=== PATIENT | female | born 1990 | race Caucasian/White ===

== ENCOUNTER 2017-01-29 12:45 | Inpatient (IN) | payer OTHER ==
[~2017-01-29] VITALS: Ht 160 cm; Wt 92.1 kg
[2017-01-29] MEDS ORDERED: IBUPROFEN 600 MG TABLET. PO PRN (13:45)
[2017-01-29] MEDS ORDERED: TERBUTALINE 1 MG/ML VIAL. SQ PRN (13:45)
[2017-01-29] MEDS ORDERED: BUTORPHANOL 2 MG/ML VIAL. IV PRN (13:45)
[2017-01-29] MEDS ORDERED: OXYTOCIN 30 UNIT/500 ML PREMIX 500 ML IV PRN ×2 (13:45→15:00)
[2017-01-29] MEDS ORDERED: 0.9 % SODIUM CHLORIDE 10 ML DISP.SYRIN. IV PRN (13:45)
[2017-01-29] MEDS ORDERED: LIDOCAINE 1% PF 30 ML VIAL. INJ PRN (13:45)
[2017-01-29] MEDS ORDERED: FENTANYL PF 100 MCG/2 ML VIAL. IV PRN (13:45)
[2017-01-29 13:54] VITALS: BP 139/70
[2017-01-29] MEDS: IV RINGERS,LACTATED 1000ML 1,000 ML IV SCH ×2 (14:13→19:57)
[2017-01-29 14:33] LABS: HEMOGLOBIN 12.9 g/dL (12.0-15.5); RED BLOOD COUNT 4.29 x10^6/uL (3.50-5.40); RED CELL DISTRIBUTION WIDTH 13.8 % (11.5-14.5); WHITE BLOOD COUNT 14.4 x10^3/uL (4.0-11.0)
--- NOTE | 2017-01-29 17:50 | PDOC1 ---
OB - History Hx of Present Care: Good Care Ultrasounds: Normal mid trimester US Obstetrical Complications: None Medical Complications: None Past Family/Social History * Past Medical, Surgical, Family and Obstetric Histories reviewed from chart. Rubella: Immune RPR/VDRL: Negative GBS Status: Negative HBsAG: Negative OB - Chief Complaint & HPI Date of Admission: Date of Admission: Jan 29, 2017 at 12:45 Chief Complaint/History : 2 Para: 0 EGA: 39 Reason for admission: active labor, rupture of membranes Admission Nurse Assessment Rev: Yes Problems: OB - Admission Exam Physical Exam Vitals: VS - Last 72 Hours, by Label Date Time Temp Pulse Resp B/P Pulse Ox O2 Delivery O2 Flow Rate FiO2 01/29/17 17:06 20 Room Air 01/29/17 13:54 98.5 95 20 139/70 98.5 HEENT: Normal Heart: Regular Rate Lungs: Clear Abdomen: Gravid, Non tender, Soft Extremities: Edema Reflexes: Normal Cervical Dilatation: 2cm Effacement: 75% Station: -3 Membranes: Ruptured Amniotic Fluid: Clear Heart Rate: Normal Accelerations: Accelerations Present Decelerations: No decelerations Contractions on Admission: None Intensity: Mild Text A: 38 wks IUP SROM P: Admit for labor management. Start Pitocin augmentation. TOM ALMAZAN Jr, MD Jan 29, 2017 17:50
[2017-01-29] MEDS ORDERED: L&D EPIDURAL CASSETTE 100 ML EP ONE (18:52)
[2017-01-29] MEDS ORDERED: ROPIVacaine 0.2% IN 0.9%NACL PF 40 MG/20 ML DISP.SYRIN. ONE (18:52)
--- NOTE | 2017-01-30 01:06 | PDOC ---
VAGINAL DELIVERY DATE DATE: 01/30/17 TIME: 01:04 : 2 Para: 1 EGA: 38 VAGINAL DELIVERY: VTX VACCUM ASSISTED: No PLACENTA: Spontaneous 3/9 SEX: Male WEIGHT Weight [ 2945 gm] Nuchal Cord: No Amniotic Fluid: Clear PAIN: Epidural EPISIOTOMY: No EXTENSION: Yes (1st degree midline laceration) REPAIRED WITH 2-0 vicryl EBL 300 ml COMPLICATIONS none CONDITION pt. stable Signs of Intrauterine Infectio: None Shoulder Dystocia: No Problems: TOM ALMAZAN Jr, MD Jan 30, 2017 01:06
[2017-01-30] MEDS ORDERED: BENZOCAINE 20% TOPICAL AEROSOL SPRAY 57GM CAN. TP PRN (01:15)
[2017-01-30] MEDS ORDERED: ACETAMINOPHEN 325 MG TABLET. PO PRN (01:15)
[2017-01-30] MEDS ORDERED: ZOLPIDEM 5 MG TABLET. PO PRN (01:15)
[2017-01-30] MEDS ORDERED: HYDROCORTISONE 1% TOPICAL OINTMENT 30GM TUBE. TP PRN (01:15)
[2017-01-30] MEDS ORDERED: DIPHENHYDRAMINE HCL 25 MG CAPSULE PO PRN (01:15)
[2017-01-30] MEDS ORDERED: MAGNESIUM HYDROXIDE 2,400 MG/30 ML ORAL.SUSP. PO PRN (01:15)
[2017-01-30] MEDS ORDERED: 0.9 % SODIUM CHLORIDE 10 ML DISP.SYRIN. IV PRN (01:15)
[2017-01-30] MEDS ORDERED: MMR per PROTOCOL. MC PRN (01:15)
[2017-01-30] MEDS ORDERED: SIMETHICONE 80 MG TAB.CHEW PO PRN (01:15)
[2017-01-30] MEDS ORDERED: OXYTOCIN 30 UNIT/500 ML PREMIX 500 ML IV PRN (01:15)
[2017-01-30] MEDS ORDERED: PHENYLEPH/MINERAL OIL/PETROLAT RECTAL OINTMENT 28GM TUBE. RC PRN (01:15)
[2017-01-30] MEDS ORDERED: MAG HYDROX/ALUMINUM HYD/SIMETH 30 ML ORAL.SUSP PO PRN (01:15)
[2017-01-30] MEDS: IBUPROFEN 800 MG TABLET. PO PRN ×2 (02:36→10:05)
[2017-01-30 03:35] VITALS: BP 130/77
[2017-01-30 04:35] VITALS: BP 107/66
[2017-01-30] MEDS: DOCUSATE SODIUM 100 MG CAPSULE. PO PRN ×2 (10:05→23:16)
[2017-01-30 11:08] VITALS: BP 126/66
[2017-01-30 14:30] VITALS: BP 128/83
[2017-01-30] MEDS: OXYCODONE/APAP 5/325 TABLET. PO PRN ×2 (15:49→23:16)
[2017-01-30 18:35] VITALS: BP 139/89
[2017-01-30 19:55] VITALS: BP 128/83
[2017-01-31 00:10] VITALS: BP 117/89
[2017-01-31] MEDS ORDERED: FENTANYL PF 100 MCG/2 ML VIAL. IV PRN (04:59)
[2017-01-31] MEDS ORDERED: ACETAMINOPHEN 325 MG TABLET. PO PRN (04:59)
[2017-01-31 05:20] VITALS: BP 128/86
[2017-01-31 06:24] LABS: BASO # 0.1 x10^3/uL (0.0-0.2); BASO % 0 % (0-3); EOS % 2 % (0-3); HEMATOCRIT 38.1 % (36.0-47.0); HEMOGLOBIN 12.7 g/dL (12.0-15.5); LYMPH # 3.4 x10^3/uL (1.0-4.8); LYMPH % 16 % (24-48); MEAN CORPUSCULAR HEMOGLOBIN 30 pg (25-35); MEAN CORPUSCULAR HGB CONC 33 g/dL (31-37); MEAN CORPUSCULAR VOLUME 90 fL (79-100); MONO % 4 % (0-9); NEUT % 78 % (31-73); PLATELET COUNT 317 x10^3/uL (140-400); RED BLOOD COUNT 4.23 x10^6/uL (3.50-5.40); RED CELL DISTRIBUTION WIDTH 13.9 % (11.5-14.5); WHITE BLOOD COUNT 21.1 x10^3/uL (4.0-11.0)
[2017-01-31] MEDS ORDERED: FERROUS SULFATE 325 MG TABLET PO SCH (08:00)
[2017-01-31] MEDS: DOCUSATE SODIUM 100 MG CAPSULE. PO PRN (08:10)
[2017-01-31] MEDS: IBUPROFEN 800 MG TABLET. PO PRN ×2 (08:10→19:41)
[2017-01-31 11:30] VITALS: BP 121/84
[2017-01-31 15:31] VITALS: BP 115/81
--- NOTE | 2017-01-31 17:35 | PDOC ---
OB Progress Note Date of Service 01/31/17 Time of Evaluation 1735 Notes PT. feeling well. Lochia minimal. Pain controlled. Breast feeding without difficulty. Lab Laboratory Tests Test 01/31/17 06:08 White Blood Count 21.1x10^3/uL (4.0-11.0) Red Blood Count 4.23x10^6/uL (3.50-5.40) Hemoglobin 12.7g/dL (12.0-15.5) Hematocrit 38.1% (36.0-47.0) Mean Corpuscular Volume 90fL (79-100) Mean Corpuscular Hemoglobin 30pg (25-35) Mean Corpuscular Hemoglobin Concent 33g/dL (31-37) Red Cell Distribution Width 13.9% (11.5-14.5) Platelet Count 317x10^3/uL (140-400) Neutrophils (%) (Auto) 78% (31-73) Lymphocytes (%) (Auto) 16% (24-48) Monocytes (%) (Auto) 4% (0-9) Eosinophils (%) (Auto) 2% (0-3) Basophils (%) (Auto) 0% (0-3) Neutrophils # (Auto) 16.4x10^3uL (1.8-7.7) Lymphocytes # (Auto) 3.4x10^3/uL (1.0-4.8) Monocytes # (Auto) 0.8x10^3/uL (0.0-1.1) Eosinophils # (Auto) 0.5x10^3/uL (0.0-0.7) Basophils # (Auto) 0.1x10^3/uL (0.0-0.2) Laboratory Tests Test 01/31/17 06:08 White Blood Count 21.1x10^3/uL (4.0-11.0) Red Blood Count 4.23x10^6/uL (3.50-5.40) Hemoglobin 12.7g/dL (12.0-15.5) Hematocrit 38.1% (36.0-47.0) Mean Corpuscular Volume 90fL (79-100) Mean Corpuscular Hemoglobin 30pg (25-35) Mean Corpuscular Hemoglobin Concent 33g/dL (31-37) Red Cell Distribution Width 13.9% (11.5-14.5) Platelet Count 317x10^3/uL (140-400) Neutrophils (%) (Auto) 78% (31-73) Lymphocytes (%) (Auto) 16% (24-48) Monocytes (%) (Auto) 4% (0-9) Eosinophils (%) (Auto) 2% (0-3) Basophils (%) (Auto) 0% (0-3) Neutrophils # (Auto) 16.4x10^3uL (1.8-7.7) Lymphocytes # (Auto) 3.4x10^3/uL (1.0-4.8) Monocytes # (Auto) 0.8x10^3/uL (0.0-1.1) Eosinophils # (Auto) 0.5x10^3/uL (0.0-0.7) Basophils # (Auto) 0.1x10^3/uL (0.0-0.2) Medications Current Medications Sodium Chloride 3 ml 3 ml QSHIFT PRN IV AFTER MEDS AND BLOOD DRAWS; Start 01/29 at 13:45 Lactated Ringer's (Iv Lactated Ringers) 1,000 ml @ 125 mls/hr Q8H IV Last administered on 01/29/17 19:57; Start 01/29/17 at 13:43 Butorphanol Tartrate (Stadol) 2 mg PRN Q1HR PRN IV Severe labor pain Last administered on 01/29/17 17:06; Start 01/29/17 at 13:45 Fentanyl Citrate (Fentanyl 2ml Vial) 100 mcg PRN Q30MIN PRN IV Severe pain; Start 01/29/17 at 13:45; Stop 01/31/17 at 04:59; Status DC Terbutaline Sulfate (Brethine) 0.25 mg 1X PRN PRN SQ SEE COMMENTS; Start at 13:45; Stop 01/30/17 at 13:44; Status DC Lidocaine HCl 30 ml 30 ml 1X PRN PRN INJ SEE COMMENTS; Start 01/29/17 at 13:45 ; Stop 01/31/17 at 13:44; Status DC Oxytocin/Sodium Chloride 500 ml @ 0 mls/hr CONT PRN IV SEE I/O RECORD Last administered on 01/29/17 15:08; Start 01/29/17 at 15:00 Oxytocin/Sodium Chloride (Oxytocin Premix Infusion) 500 ml @ 0 mls/hr CONT PRN PRN IV Post delivery bleeding; Start 01/29/17 at 13:45 Ibuprofen 600 mg 600 mg PRN Q6HRS PRN PO PAIN; Start 01/29/17 at 13:45 Ropivacaine/ Fentanyl/NS (Whqdyccq-Iljlk-PZ 3 Mcg-0.1%) 100 ml @ As Directed STK-MED ONCE EP Last administered on 01/29/17 18:57; Start 01/29/17 at 18:52; Stop 01/29/17 at 18:53; Status DC Ropivacaine 40 mg STK-MED ONCE .ROUTE Last administered on 01/29/17 18:58; Start 01/29/17 at 18:52; Stop 01/29/17 at 18:53; Status DC Sodium Chloride 10 ml 10 ml QSHIFT PRN IV AFTER MEDS AND BLOOD DRAWS; Start at 01:15 Oxytocin/Sodium Chloride (Oxytocin Premix Infusion) 500 ml @ 62.5 mls/hr CONT PRN IV SEE I/O RECORD; Start 01/30/17 at 01:15; Stop 01/30/17 at 09:14; Status DC Acetaminophen (Tylenol) 650 mg PRN Q6HRS PRN PO MILD PAIN / TEMP; Start at 01:15; Stop 01/31/17 at 04:59; Status DC Ibuprofen (Motrin) 800 mg PRN Q8HRS PRN PO INFLAMMATION/PAIN PREVENTION Last administered on 01/31/17 08:10; Start 01/30/17 at 01:15 Docusate Sodium (Colace) 100 mg PRN BID PRN PO CONSTIPATION Last administered on 01/31/17 08:10; Start 01/30/17 at 01:15 Magnesium Hydroxide (Milk Of Magnesia) 2,400 mg PRN DAILY PRN PO CONSTIPATION; Start 01/30/17 at 01:15 Al Hydroxide/Mg Hydroxide (Mylanta Plus Xs) 30 ml PRN Q4HRS PRN PO HEARTBURN / GAS; Start 01/30/17 at 01:15 Simethicone (Gas-X) 80 mg PRN AFTMEALHC PRN PO GAS / BLOATING; Start 01/30/17 at 01:15 Diphenhydramine HCl (Benadryl) 25 mg PRN Q6HRS PRN PO ITCHING; Start 01/30/17 at 01:15 Benzocaine (Americaine) 1 spray PRN QID PRN TP TOPICAL PAIN Last administered on 01/30/17 02:36; Start 01/30/17 at 01:15 Phenyleph/Shark Oil/Min Oil/Petrol (Preparation H) 1 harleen PRN QID PRN RC RECTAL PAIN; Start 01/30/17 at 01:15 Hydrocortisone (Cortaid) 1 harleen PRN QID PRN TP PERINEAL PAIN; Start 01/30/17 at 01:15 Ferrous Sulfate (Feosol) 325 mg BIDWMEALS PO ; Start 01/31/17 at 08:00 Zolpidem Tartrate (Ambien) 5 mg PRN QHS PRN PO INSOMNIA, MAY REPEAT X1; Start 01/30/17 at 01:15 Info (Do NOT chart on this placeholder) 1 ea 1X PRN PRN MC SEE COMMENTS; Start 01/30/17 at 01:15 Info (Do NOT chart on this placeholder) 1 ea 1X PRN PRN MC SEE COMMENTS; Start 01/30/17 at 01:15 Oxycodone/ Acetaminophen (Percocet 5/325) 2 tab PRN Q4HRS PRN PO MODERATE PAIN , SEVERE PAIN Last administered on 01/30/17 23:16; Start 01/30/17 at 01:15 Acetaminophen (Tylenol) 650 mg PRN Q6HRS PRN PO MILD PAIN / TEMP; Start at 04:59 Fentanyl Citrate (Fentanyl 2ml Vial) 100 mcg PRN Q30MIN PRN IV Severe pain; Start 01/31/17 at 04:59 Exam Abd: soft, non tender, fundus firm Assessment PPD#1 s/p Plan of Care: Continue current Tx, TOM Wood Jr, MD Jan 31, 2017 17:35
[2017-01-31 23:03] VITALS: BP 146/80
[2017-02-01 05:56] VITALS: BP 134/90
[2017-02-01] MEDS: IBUPROFEN 800 MG TABLET. PO PRN (09:15)
[2017-02-01 11:20] VITALS: BP 125/86
--- NOTE | 2017-02-01 12:45 | PDOC ---
OB Progress Note Date of Service 02/01/17 Time of Evaluation 1245 Notes PT. feeling well. Will repeat CBC since elevated WBC. Breast feeding. Lochia minimal. Pain controlled. Lab Laboratory Tests Test 01/31/17 06:08 White Blood Count 21.1x10^3/uL (4.0-11.0) Red Blood Count 4.23x10^6/uL (3.50-5.40) Hemoglobin 12.7g/dL (12.0-15.5) Hematocrit 38.1% (36.0-47.0) Mean Corpuscular Volume 90fL (79-100) Mean Corpuscular Hemoglobin 30pg (25-35) Mean Corpuscular Hemoglobin Concent 33g/dL (31-37) Red Cell Distribution Width 13.9% (11.5-14.5) Platelet Count 317x10^3/uL (140-400) Neutrophils (%) (Auto) 78% (31-73) Lymphocytes (%) (Auto) 16% (24-48) Monocytes (%) (Auto) 4% (0-9) Eosinophils (%) (Auto) 2% (0-3) Basophils (%) (Auto) 0% (0-3) Neutrophils # (Auto) 16.4x10^3uL (1.8-7.7) Lymphocytes # (Auto) 3.4x10^3/uL (1.0-4.8) Monocytes # (Auto) 0.8x10^3/uL (0.0-1.1) Eosinophils # (Auto) 0.5x10^3/uL (0.0-0.7) Basophils # (Auto) 0.1x10^3/uL (0.0-0.2) Hepatitis B Surface Antibody Non reactive (.) Medications Current Medications Sodium Chloride 3 ml 3 ml QSHIFT PRN IV AFTER MEDS AND BLOOD DRAWS; Start 01/29 at 13:45 Lactated Ringer's (Iv Lactated Ringers) 1,000 ml @ 125 mls/hr Q8H IV Last administered on 01/29/17 19:57; Start 01/29/17 at 13:43 Butorphanol Tartrate (Stadol) 2 mg PRN Q1HR PRN IV Severe labor pain Last administered on 01/29/17 17:06; Start 01/29/17 at 13:45 Fentanyl Citrate (Fentanyl 2ml Vial) 100 mcg PRN Q30MIN PRN IV Severe pain; Start 01/29/17 at 13:45; Stop 01/31/17 at 04:59; Status DC Terbutaline Sulfate (Brethine) 0.25 mg 1X PRN PRN SQ SEE COMMENTS; Start at 13:45; Stop 01/30/17 at 13:44; Status DC Lidocaine HCl 30 ml 30 ml 1X PRN PRN INJ SEE COMMENTS; Start 01/29/17 at 13:45 ; Stop 01/31/17 at 13:44; Status DC Oxytocin/Sodium Chloride 500 ml @ 0 mls/hr CONT PRN IV SEE I/O RECORD Last administered on 01/29/17 15:08; Start 01/29/17 at 15:00 Oxytocin/Sodium Chloride (Oxytocin Premix Infusion) 500 ml @ 0 mls/hr CONT PRN PRN IV Post delivery bleeding; Start 01/29/17 at 13:45 Ibuprofen 600 mg 600 mg PRN Q6HRS PRN PO PAIN; Start 01/29/17 at 13:45 Ropivacaine/ Fentanyl/NS (Xwjzjzlf-Jgioe-CE 3 Mcg-0.1%) 100 ml @ As Directed STK-MED ONCE EP Last administered on 01/29/17 18:57; Start 01/29/17 at 18:52; Stop 01/29/17 at 18:53; Status DC Ropivacaine 40 mg STK-MED ONCE .ROUTE Last administered on 01/29/17 18:58; Start 01/29/17 at 18:52; Stop 01/29/17 at 18:53; Status DC Sodium Chloride 10 ml 10 ml QSHIFT PRN IV AFTER MEDS AND BLOOD DRAWS; Start at 01:15 Oxytocin/Sodium Chloride (Oxytocin Premix Infusion) 500 ml @ 62.5 mls/hr CONT PRN IV SEE I/O RECORD; Start 01/30/17 at 01:15; Stop 01/30/17 at 09:14; Status DC Acetaminophen (Tylenol) 650 mg PRN Q6HRS PRN PO MILD PAIN / TEMP; Start at 01:15; Stop 01/31/17 at 04:59; Status DC Ibuprofen (Motrin) 800 mg PRN Q8HRS PRN PO INFLAMMATION/PAIN PREVENTION Last administered on 02/01/17 09:15; Start 01/30/17 at 01:15 Docusate Sodium (Colace) 100 mg PRN BID PRN PO CONSTIPATION Last administered on 01/31/17 08:10; Start 01/30/17 at 01:15 Magnesium Hydroxide (Milk Of Magnesia) 2,400 mg PRN DAILY PRN PO CONSTIPATION; Start 01/30/17 at 01:15 Al Hydroxide/Mg Hydroxide (Mylanta Plus Xs) 30 ml PRN Q4HRS PRN PO HEARTBURN / GAS; Start 01/30/17 at 01:15 Simethicone (Gas-X) 80 mg PRN AFTMEALHC PRN PO GAS / BLOATING; Start 01/30/17 at 01:15 Diphenhydramine HCl (Benadryl) 25 mg PRN Q6HRS PRN PO ITCHING; Start 01/30/17 at 01:15 Benzocaine (Americaine) 1 spray PRN QID PRN TP TOPICAL PAIN Last administered on 01/30/17 02:36; Start 01/30/17 at 01:15 Phenyleph/Shark Oil/Min Oil/Petrol (Preparation H) 1 harleen PRN QID PRN RC RECTAL PAIN; Start 01/30/17 at 01:15 Hydrocortisone (Cortaid) 1 harleen PRN QID PRN TP PERINEAL PAIN; Start 01/30/17 at 01:15 Ferrous Sulfate (Feosol) 325 mg BIDWMEALS PO ; Start 01/31/17 at 08:00; Stop at 19:21; Status DC Zolpidem Tartrate (Ambien) 5 mg PRN QHS PRN PO INSOMNIA, MAY REPEAT X1; Start 01/30/17 at 01:15 Info (Do NOT chart on this placeholder) 1 ea 1X PRN PRN MC SEE COMMENTS; Start 01/30/17 at 01:15 Info (Do NOT chart on this placeholder) 1 ea 1X PRN PRN MC SEE COMMENTS; Start 01/30/17 at 01:15 Oxycodone/ Acetaminophen (Percocet 5/325) 2 tab PRN Q4HRS PRN PO MODERATE PAIN , SEVERE PAIN Last administered on 01/30/17 23:16; Start 01/30/17 at 01:15 Acetaminophen (Tylenol) 650 mg PRN Q6HRS PRN PO MILD PAIN / TEMP; Start at 04:59 Fentanyl Citrate (Fentanyl 2ml Vial) 100 mcg PRN Q30MIN PRN IV Severe pain; Start 01/31/17 at 04:59 Exam Abd: soft, non tender, fundus firm Assessment PPD#2 s/p Plan of Care: See new orders (D/c home.) TOM ALMAZAN Jr, MD Feb 01, 2017 12:45
[2017-02-01] MEDS ORDERED: IBUP-1060 PO (12:49)
--- NOTE | 2017-02-01 12:49 | DISCH ---
DISCHARGE INSTRUCTIONS Condition on Discharge Condition on Discharge: Stable Activity After Discharge Activity Instructions for Disc: Activity as tolerated Lifting Instructions after Dis: No heavy lifting Driving Instructions after Dis: Do not drive today Diet after Discharge Diet after Discharge: Regular Contacting the [facility] after DC Call your doctor for: Concerns you may have Follow-Up Follow up with: Dr. Russ in 6 weeks. TOM RUSS Jr, MD Feb 01, 2017 12:49
[2017-02-01 13:10] LABS: BASO # 0.1 x10^3/uL (0.0-0.2); BASO % 0 % (0-3); EOS % 3 % (0-3); HEMATOCRIT 36.8 % (36.0-47.0); HEMOGLOBIN 12.1 g/dL (12.0-15.5); LYMPH # 2.3 x10^3/uL (1.0-4.8); LYMPH % 12 % (24-48); MEAN CORPUSCULAR HEMOGLOBIN 30 pg (25-35); MEAN CORPUSCULAR HGB CONC 33 g/dL (31-37); MEAN CORPUSCULAR VOLUME 91 fL (79-100); MONO % 3 % (0-9); NEUT % 81 % (31-73); PLATELET COUNT 369 x10^3/uL (140-400); RED BLOOD COUNT 4.03 x10^6/uL (3.50-5.40); RED CELL DISTRIBUTION WIDTH 13.6 % (11.5-14.5); WHITE BLOOD COUNT 18.9 x10^3/uL (4.0-11.0)
[2017-02-01 16:00] VITALS: BP 117/86
[2017-02-01 17:07] LABS: % EOS 2 % (0-5)
[2017-02-01 17:08] LABS: OVALOCYTES OCC; PLT ESTIMATE ADEQUATE (ADEQUATE); POLYCHROMASIA SLIGHT
== END 2017-02-01 18:44 | disposition home or self-care (01) | DRG 775 ==
LOC: 3 SO LND 12:45 → OBSVTOIN 12:45 → 3 NORTH 01-30 03:25
PROVIDERS: ADMIT Obstetrics & Gynecology; ATTEND Obstetrics & Gynecology
PROC: 0HQ9XZZ Repair Perineum Skin, External Approach (ICD-10-PCS; principal; 2017-01-30)
PROC: 10E0XZZ Delivery of Products of Conception, External Approach (ICD-10-PCS; 2017-01-30)
PROC: 3E0S3CZ (ICD-10-PCS; 2017-01-30)
PROC: 00HU33Z Insertion of Infusion Device into Spinal Canal, Percutaneous Approach (ICD-10-PCS; 2017-01-30)
DX: O70.0 First degree perineal laceration during delivery (principal); Z37.0 Single live birth; Z3A.38 38 weeks gestation of pregnancy
CPT/HCPCS: 36415; 85007; 85027; 86593; 86706; 86850; 86900; 86901; J2590; J2795; J7120

== ENCOUNTER 2017-02-27 03:02 | Emergency (ER) | payer OTHER ==
[~2017-02-27] VITALS: Ht 160 cm; Wt 84.4 kg
[~2017-02-27 03:02] MED LIST: IBUP-1060 PO
[2017-02-27] MEDS ORDERED: HYDR-2666 PO (03:53)
[2017-02-27] MEDS ORDERED: ONDA4TAB10 SL (03:53)
--- NOTE | 2017-02-27 03:53 | PHYS DOC ---
Past Medical History Past Medical History: Anxiety, Asthma Past Surgical History: Other Additional Past Surgical Histo: RT SHOULDER Alcohol Use: Occasionally Drug Use: None Adult General Chief Complaint Chief Complaint: NAUSEA/VOMITING/DIARRHA HPI HPI Patient is a 26 year old female who presents with intermittent epigastric pain radiating to back associated with nbnb emesis. Usually occurs a night a couple hours after dinner. Currently asymptomatic. States it is colicky, severe pain. Happening over the past few days. Denies f/c, diarrhea, constipation, dyspnea, dysuria, cough, chest pain, rash. Review of Systems Review of Systems Constitutional: Denies fever or chills [] Eyes: Denies change in visual acuity, redness, or eye pain [] HENT: Denies nasal congestion or sore throat [] Respiratory: Denies cough or shortness of breath [] Cardiovascular: No additional information not addressed in HPI [] GI: Denies bloody stools or diarrhea [] : Denies dysuria or hematuria [] Musculoskeletal: Denies back pain or joint pain [] Integument: Denies rash or skin lesions [] Neurologic: Denies headache, focal weakness or sensory changes [] Endocrine: Denies polyuria or polydipsia [] Allergies Allergies Allergies Coded Allergies Type Severity Reaction Last Updated Verified No Known Drug Allergies 09/09/15 No Physical Exam Physical Exam Constitutional: Well developed, well nourished, no acute distress, non-toxic appearance. [] HENT: Normocephalic, atraumatic, bilateral external ears normal, oropharynx moist, nose normal. [] Eyes: PERRLA, EOMI. [] Neck: Normal range of motion, supple. [] Cardiovascular:Heart rate regular rhythm [] Lungs & Thorax: Bilateral breath sounds clear to auscultation [] Abdomen: Bowel sounds normal, soft, no tenderness. [] Skin: Warm, dry, no erythema, no rash. [] Back: No tenderness, no CVA tenderness. [] Extremities: No tenderness, ROM intact, no edema. [] Neurologic: Alert and oriented X 3, normal motor function, normal sensory function, no focal deficits noted. [] Psychologic: Affect normal, judgement normal, mood normal. [] Current Patient Data Vital Signs Vital Signs Date Time Temp Pulse Resp B/P Pulse Ox O2 Delivery O2 Flow Rate FiO2 02/27/17 04:00 87 107/68 98 Room Air 02/27/17 03:10 98.0 16 98.0 Radiology/Procedures Radiology/Procedures Ultrasound RUQ IMPRESSION Cholelithiasis. Mild gallbladder wall thickening could indicate early cholecystitis. Electronically signed by: Jef Yeung (Feb 27, 2017 04:02:16) Course & Med Decision Making Course & Med Decision Making Pertinent Labs and Imaging studies reviewed. (See chart for details) Remains asymptomatic during exam. Imaging as above. History concerning for symptomatic gallstones. Discussed symptomatic care. Encouraged to follow up with PCP and Surgery clinic. Return precautions given. She understands and agrees with plan. Dragon Disclaimer Dragon Disclaimer This electronic medical record was generated, in whole or in part, using a voice recognition dictation system. Departure Departure Impression: Primary Impression: Symptomatic cholelithiasis Disposition: 01 HOME, SELF-CARE Condition: STABLE Referrals: VALERIE KENT MD (PCP) JAY QUILES MD Patient Instructions: Cholelithiasis, [id number] Additional Instructions: Take Zofran as needed for nausea. Take Tylenol or ibuprofen as needed for moderate pain. Take hydrocodone as needed for severe pain. Do not drink, drive or operate heavy machinery after taking hydrocodone as it may make you sleepy. Follow-up with your primary care doctor and general surgery clinic. Please call for appointment. Return for any concerns. Scripts Ondansetron (Zofran Odt)4 Mg Tab.rapdis1 Tab SL Q8HRS #10 TAB Prov:Kamla REYNOLDS MD 02/27/17 Hydrocodone Bit/Acetaminophen (Hydrocodone-Apap 5-325 )1 Each Tablet1 Tab PO PRN Q6HRS PRN PAIN #10 TAB Prov:Kamla REYNOLDS MD 02/27/17 Kamla REYNOLDS MD Feb 27, 2017 03:53
[2017-02-27 04:00] VITALS: BP 107/68
--- NOTE | 2017-02-27 04:04 | RAD ---
PROCEDURE Abdominal ultrasound 02/27/2017. HISTORY Intermittent right upper quadrant pain. TECHNIQUE COMPARISON FINDINGS The liver is homogeneous in echotexture, and no intra or extrahepatic biliary ductal dilatation is seen. The gallbladder contains multiple small stones. There is mild gallbladder wall thickening measuring up to about 4 millimeters. No pericholecystic fluid is seen. The right kidney, pancreas and abdominal aorta appear normal. IMPRESSION Cholelithiasis. Mild gallbladder wall thickening could indicate early cholecystitis. Electronically signed by: Jef Yeung (Feb 27, 2017 04:02:16)
== END 2017-02-27 04:23 | disposition home or self-care (01) ==
LOC: ER 03:02
DX: K80.20 Calculus of gallbladder without cholecystitis without obstruction (principal); F41.9 Anxiety disorder, unspecified; J45.909 Unspecified asthma, uncomplicated
CPT/HCPCS: 76705; 99284-25

== ENCOUNTER 2017-04-10 10:11 | Day surgery (SDC) | payer OTHER ==
[~2017-04-10 10:11] MED LIST changes: +HYDR-2666 PO; +ONDA4TAB10 SL
[2017-04-10] MEDS ORDERED: IV RINGERS,LACTATED 1000ML 1,000 ML IV SCH ×2 (10:45→13:22)
[2017-04-10] MEDS ORDERED: PROCHLORPERAZINE 10 MG/2 ML VIAL. IV PRN (10:45)
[2017-04-10] MEDS ORDERED: ONDANSETRON PF 4 MG/2 ML VIAL. IV PRN ×2 (10:45→13:30)
[2017-04-10] MEDS ORDERED: HYDROmorphone 2 MG/ML VIAL IV PRN (10:45)
[2017-04-10] MEDS ORDERED: MORPHINE SULFATE 2 MG/ML DISP.SYRIN. IV PRN (10:45)
[2017-04-10] MEDS ORDERED: fentaNYL PF VIAL 100 MCG/2 ML VIAL IV PRN (10:45)
[2017-04-10] MEDS ORDERED: LIDOCAINE 1% 1 ML SYRINGE. ID PRN (10:45)
[2017-04-10] MEDS ORDERED: fentaNYL PF VIAL 250 MCG/5 ML VIAL ONE (10:50)
[2017-04-10] MEDS ORDERED: ROCURONIUM 50 MG/5 ML VIAL. ONE (10:55)
[2017-04-10] MEDS ORDERED: ONDANSETRON PF 4 MG/2 ML VIAL. ONE ×2 (10:55→13:04)
[2017-04-10] MEDS ORDERED: DEXAMETHASONE SOD PHOS 20 MG/5 ML VIAL. ONE (10:55)
[2017-04-10] MEDS ORDERED: LIDOCAINE 2% PF Vial for OR 5 ML VIAL. ONE (10:55)
[2017-04-10] MEDS ORDERED: MIDAZOLAM HCL/PF 2 MG/2 ML VIAL. ONE (10:55)
[2017-04-10] MEDS ORDERED: PROPOFOL 20 ML IV ONE (10:55)
[2017-04-10] MEDS ORDERED: PREN-2 PO (11:04)
[2017-04-10] MEDS ORDERED: BUPIVAC MPF-EPI 0.5%-1:200000 30 ML VIAL. ONE (11:58)
[2017-04-10] MEDS ORDERED: BISACODYL 10 MG SUPP.RECT. ONE (11:59)
[2017-04-10] MEDS ORDERED: IOHEXOL 300 MG/ML 50 ML VIAL. ONE (11:59)
[2017-04-10] MEDS ORDERED: SURGICEL HEMOSTAT 2X3 EACH. ONE (11:59)
[2017-04-10] MEDS ORDERED: IBUPROFEN 200 MG TABLET. PO ONE (12:00)
[2017-04-10 12:04] LABS: NEG OBC UR NEG; POS OBC UR POS
[2017-04-10] MEDS ORDERED: HEPARIN 1,000 UNIT in IV NORMAL SALINE 1,000 ML for SURG PERIOP IRR ONE (12:30)
[2017-04-10] MEDS ORDERED: SUCCINYLCHOLINE 200 MG/10 ML VIAL. ONE (12:31)
[2017-04-10] MEDS ORDERED: PHENYLEPHRINE in 0.9% NACL PF 1 MG/10 ML DISP.SYRIN. IV ONE (12:58)
[2017-04-10] MEDS ORDERED: GLYCOPYRROLATE 1 MG/5 ML VIAL. ONE (13:04)
[2017-04-10] MEDS ORDERED: NEOSTIGMINE METHYLSULFATE 5 MG/5 ML SYRINGE. ONE (13:04)
--- NOTE | 2017-04-10 13:15 | RAD ---
Intraoperative cholangiogram, 04/10/2017: History: Cholecystectomy 4 spot films from surgery are presented for review. Contrast has been injected into the cystic duct remnant. 0.3 minutes of fluoroscopy time was utilized. There is good flow of contrast into the duodenum at the ampulla. No filling defect is seen in the common duct to suggest a retained calculus. There is incomplete distention of the common hepatic duct. The visualized intrahepatic ducts are unremarkable. No contrast extravasation is seen. IMPRESSION: No significant abnormality is detected.
[2017-04-10] MEDS ORDERED: DESFLURANE 61 TO 120 MINUTES IH ONE (13:18)
[2017-04-10] MEDS ORDERED: KETOROLAC 60 MG/2 ML INJ FOR OR. ONE (13:18)
[2017-04-10] MEDS ORDERED: 0.9 % SODIUM CHLORIDE 10 ML DISP.SYRIN. IV PRN (13:30)
[2017-04-10] MEDS ORDERED: HYDROcodone/APAP 5/325MG 1 TAB TABLET PO PRN (13:30)
[2017-04-10] MEDS ORDERED: DEXTROSE 50% 25 GM / 50ML DISP.SYRIN. IV PRN (13:30)
--- NOTE | 2017-04-10 13:31 | PDOC ---
BRIEF OPERATIVE NOTE Pre-Op Diagnosis Symptomatic cholelithiasis Post-Op Diagnosis same Procedure Performed Lap nilesh with grams Surgeon Vinicius Blood Loss 10 Specimens Obtained GB Findings gallstone, wnl IOC Complications none Additional Remarks [id number] JAY QUILES MD Apr 10, 2017 13:31
[2017-04-10] MEDS: fentaNYL PF VIAL 100 MCG/2 ML VIAL IV PRN ×2 (14:01→14:30)
[2017-04-10] MEDS ORDERED: HYDROcodone/APAP 5/325MG 1 TAB TABLET PO ONE (14:15)
[2017-04-10] MEDS ORDERED: DOCU-27 PO (14:37)
[2017-04-10] MEDS ORDERED: HYDR-971 PO (14:38)
[2017-04-10 15:29] VITALS: BP 105/68
--- NOTE | 2017-04-10 19:37 | OP ---
DATE OF SURGERY: REFERRING PHYSICIAN: Dr. Basilia Preston Thank you for the consult. PREOPERATIVE DIAGNOSIS: Symptomatic cholelithiasis. POSTOPERATIVE DIAGNOSIS: Symptomatic cholelithiasis. PROCEDURE: Laparoscopic cholecystectomy with intraoperative cholangiogram. SURGEON: Jack Quiles M.D. ESTIMATED BLOOD LOSS: 10 mL. FLUIDS: 150 mL. COMPLICATIONS: None. FINDINGS: Grossly normal-appearing gallbladder with no evidence of pathology, gallstones, and normal-appearing intraoperative cholangiogram. INDICATIONS: A 26-year-old female, who presents with complaints of epigastric and right upper quadrant abdominal pain. Imaging was concerning for symptomatic cholelithiasis. Subsequently, it was felt that the patient will best be served by laparoscopic versus open cholecystectomy with intraoperative cholangiogram. The patient and the patient's have been informed of the risks, benefits, and alternatives of procedure, risks including, but not limited to bleeding, infection, damage to the surrounding structures, risk of anesthesia, and risk of an open procedure. The patient and the patient's appear to understand, their insightful questions are answered, and they agree to proceed. PROCEDURE: After obtaining informed consent, the patient was taken to the operating room and induced under general endotracheal anesthetic. The patient was prepped and draped in the usual fashion in the anterior abdominal wall. A 0.5% Marcaine with epinephrine was injected in the supraumbilical area and incision was made using 15 blade scalpel. A 5-mm nonbladed trocar was introduced into the abdominal cavity under direct vision of the laparoscope. Pneumoperitoneum was established. An additional 12 port was placed in the epigastrium, another 5-mm port was placed in the right upper quadrant, all under direct vision of the laparoscope. The abdominal cavity was explored. Liver was normal in appearance. Gallbladder was grossly normal in appearance, although it did have multiple gallstones. Visualized portion of the viscera was normal in appearance. There was no evidence of trocar injury. There was no evidence of other pathology. The gallbladder was grasped. The triangle of Calot was exposed. The peritoneum overlying the cystic duct was taken down using blunt dissection. Circumferential dissection was performed of the cystic duct at the cystic duct-infundibulum junction. Critical view had demonstrated the cystic duct and cystic artery as the only structures going to the gallbladder. Clips were placed on the cystic artery and a clip was placed on the cystic duct-infundibulum junction. Incision was made in the cystic duct using EndoShears. Cholangiogram catheter was introduced and cholangiogram was obtained. Cholangiogram demonstrated normal-appearing hepatic ducts and normal-appearing common bile ducts with free extravasation into the duodenum. Cholangiogram catheter was removed. Multiple clips were placed on the cystic duct stump, including Hem-o-renetta, and the cystic duct was divided. Cystic artery was divided between the previously placed clips. The gallbladder was taken off the gallbladder fossa sharply using electrocautery. Gallbladder was placed in the EndoCatch bag, brought out through the epigastric port, and passed off the field and sent to Pathology for evaluation. The abdominal cavity was copiously irrigated. Normal saline was placed and there was no evidence of bleeding or other pathology at the time of closure. All ports were removed under direct vision of laparoscope. There was no evidence of port site bleeding. The fascial defect in the epigastric area was re-approximated using interrupted 0 Vicryl stitch using EndoClose. All skin incisions were approximated using multiple interrupted 4-0 Monocryl in a subcuticular fashion. Sterile dressing was placed over all wounds. The patient tolerated the procedure well and she was brought to the recovery room in stable condition. All counts were correct. There were no immediate complications. JACK QUILES MD DR: CINTIA/nts JOB#: [id number] / [id number] BASILIA Bowie MD MTDD
[2017-04-10] MEDS ORDERED: DOCUSATE SODIUM 100 MG CAPSULE. PO SCH (21:00)
== END 2017-04-10 15:29 | disposition home or self-care (01) ==
LOC: SURG 10:11
PROVIDERS: ATTEND Surgery
DX: K80.20 Calculus of gallbladder without cholecystitis without obstruction (principal); G43.909 Migraine, unspecified, not intractable, without status migrainosus; J45.909 Unspecified asthma, uncomplicated; Z80.8 Family history of malignant neoplasm of other organs or systems; Z98.890 Other specified postprocedural states
CPT/HCPCS: 47563; 74300; 81025; C1782; J0330; J0690; J0780; J1100; J1885; J2370; J2405; J2704; J2710; J3010; J3490; J7030; Q9967; J2250

== ENCOUNTER → 2018-02-03 | Outpatient (CLI) | payer OTHER ==
[2018-02-03 16:51] LABS: ADD MAN DIFF? NO
[2018-02-03 17:00] LABS: BASO # 0.1 x10^3/uL (0.0-0.2); BASO % 1 % (0-3); EOS # 0.2 x10^3/uL (0.0-0.7); EOS % 2 % (0-3); HEMATOCRIT 39.8 % (36.0-47.0); HEMOGLOBIN 13.5 g/dL (12.0-15.5); LYMPH # 2.7 x10^3/uL (1.0-4.8); LYMPH % 26 % (24-48); MEAN CORPUSCULAR HEMOGLOBIN 30 pg (25-35); MEAN CORPUSCULAR HGB CONC 34 g/dL (31-37); MEAN CORPUSCULAR VOLUME 89 fL (79-100); MONO # 0.6 x10^3/uL (0.0-1.1); MONO % 6 % (0-9); NEUT # 6.9 x10^3uL (1.8-7.7); NEUT % 66 % (31-73); PLATELET COUNT 469 x10^3/uL (140-400); RED BLOOD COUNT 4.48 x10^6/uL (3.50-5.40); RED CELL DISTRIBUTION WIDTH 12.9 % (11.5-14.5); WHITE BLOOD COUNT 10.5 x10^3/uL (4.0-11.0)
[2018-02-04 04:18] LABS: RUBELLA IGG ANTIBODY 2.75 index (Immune >0.99)
[2018-02-04 06:18] LABS: RPR Non Reactive (Non Reactive)
[2018-02-04 11:22] LABS: HEP B SURFACE AG Negative (Negative); HIV ANTIBODY Non Reactive (Non Reactive)
== END | disposition home or self-care (01) ==
LOC: LAB 16:40
DX: N93.9 Abnormal uterine and vaginal bleeding, unspecified (principal)
CPT/HCPCS: 36415; 85025; 86593; 86703; 86762; 86850; 86900; 86901; 87340

== ENCOUNTER 2018-02-27 11:48 | Emergency (ER) | payer OTHER ==
[2018-02-27 11:58] LABS: URINE HCG POC HCG POSITIVE (Negative)
[2018-02-27 12:35] LABS: BILIRUBIN,URINE NEGATIVE (NEG); CLARITY,URINE CLEAR; COLOR,URINE YELLOW; GLUCOSE,URINE NEGATIVE (NEG); NITRITE,URINE NEGATIVE (NEG); PROTEIN,URINE NEGATIVE (NEG-TRACE); UROBILINOGEN,URINE 0.2 mg/dL (0.2 mg/dL)
[2018-02-27] MEDS: IV NORMAL SALINE 1000ML BAG 1,000 ML IV (12:35)
[2018-02-27 12:45] LABS: ADD MAN DIFF? NO
[2018-02-27 12:50] LABS: BASO # 0.1 x10^3/uL (0.0-0.2); BASO % 1 % (0-3); EOS # 0.3 x10^3/uL (0.0-0.7); EOS % 4 % (0-3); HEMATOCRIT 39.7 % (36.0-47.0); LYMPH # 1.3 x10^3/uL (1.0-4.8); LYMPH % 16 % (24-48); MEAN CORPUSCULAR HEMOGLOBIN 31 pg (25-35); MEAN CORPUSCULAR HGB CONC 35 g/dL (31-37); MEAN CORPUSCULAR VOLUME 88 fL (79-100); MONO # 0.7 x10^3/uL (0.0-1.1); MONO % 8 % (0-9); NEUT # 5.9 x10^3uL (1.8-7.7); NEUT % 71 % (31-73); PLATELET COUNT 407 x10^3/uL (140-400); RED BLOOD COUNT 4.51 x10^6/uL (3.50-5.40); RED CELL DISTRIBUTION WIDTH 12.7 % (11.5-14.5); WHITE BLOOD COUNT 8.3 x10^3/uL (4.0-11.0)
[2018-02-27 13:03] LABS: ANION GAP 7 (6-14); BLOOD UREA NITROGEN 5 mg/dL (7-20); BUN/CREATININE RATIO 7 (6-20); CALCIUM 9.4 mg/dL (8.5-10.1); CARBON DIOXIDE 28 mmol/L (21-32); CHLORIDE 102 mmol/L (98-107); CREATININE 0.7 mg/dL (0.6-1.0); GFR 99.6; GLUCOSE 90 mg/dL (70-99); POTASSIUM 3.9 mmol/L (3.5-5.1); SODIUM 137 mmol/L (136-145)
[2018-02-27 13:07] LABS: BACTERIA,URINE MODERATE /HPF (0-FEW); RBC,URINE 0 /HPF (0-2); SQUAMOUS EPITHELIAL CELL,UR MANY /LPF
[2018-02-27 13:14] LABS: ALBUMIN 3.4 g/dL (3.4-5.0); ALBUMIN/GLOBULIN RATIO 0.8 (1.0-1.7); ALK PHOS 82 U/L (46-116); ALT (SGPT) 60 U/L (14-59); AST (SGOT) 41 U/L (15-37); TOTAL BILIRUBIN 0.2 mg/dL (0.2-1.0); TOTAL PROTEIN 7.8 g/dL (6.4-8.2)
[2018-02-28 15:32] LABS: CHLAMYDIA PROBE Negative (Negative); GC PROBE Negative (Negative)
== END 2018-02-27 14:43 | disposition home or self-care (01) ==
LOC: ER 11:48
DX: O23.41 Unspecified infection of urinary tract in pregnancy, first trimester (principal); O99.341 Other mental disorders complicating pregnancy, first trimester; F41.9 Anxiety disorder, unspecified; O99.511 Diseases of the respiratory system complicating pregnancy, first trimester; J45.909 Unspecified asthma, uncomplicated; Z90.49 Acquired absence of other specified parts of digestive tract; Z3A.09 9 weeks gestation of pregnancy
CPT/HCPCS: 36415; 76801; 76817; 80053; 81001; 81025; 84702; 85025; 87086; 87491; 87591; 96360; 96361; 99285-25; J7030; Q0111

== ENCOUNTER → 2018-05-05 | Outpatient (CLI) | payer OTHER | END | disposition home or self-care (01) | LOC: US 15:40 | DX: O26.842 Uterine size-date discrepancy, second trimester (principal); Z3A.20 20 weeks gestation of pregnancy | CPT/HCPCS: 76805 ==

== ENCOUNTER → 2018-06-10 | Outpatient (CLI) | payer OTHER ==
[2018-02-27 13:40] VITALS: BP 117/68
[~2018-06-10] MED LIST changes: +CEPH500T PO; +DOCU-109 PO; -HYDR-2666 PO; +HYDR-2758 PO; +HYDR-971 PO; +PREN-2 PO
[2018-06-10 08:37] LABS: HEMOGLOBIN 13.2 g/dL (12.0-15.5); RED BLOOD COUNT 4.24 x10^6/uL (3.50-5.40); WHITE BLOOD COUNT 11.2 x10^3/uL (4.0-11.0)
[2018-06-10 08:38] LABS: BASO % 0 % (0-3); EOS # 0.4 x10^3/uL (0.0-0.7); EOS % 4 % (0-3); HEMATOCRIT 38.7 % (36.0-47.0); LYMPH # 2.1 x10^3/uL (1.0-4.8); LYMPH % 19 % (24-48); MEAN CORPUSCULAR HEMOGLOBIN 31 pg (25-35); MEAN CORPUSCULAR HGB CONC 34 g/dL (31-37); MEAN CORPUSCULAR VOLUME 91 fL (79-100); MONO # 0.6 x10^3/uL (0.0-1.1); MONO % 5 % (0-9); NEUT # 8.1 x10^3uL (1.8-7.7); NEUT % 72 % (31-73); PLATELET COUNT 369 x10^3/uL (140-400); RED CELL DISTRIBUTION WIDTH 13.3 % (11.5-14.5)
== END | disposition home or self-care (01) ==
LOC: LAB 07:33
PROVIDERS: ATTEND Obstetrics & Gynecology
DX: O26.892 Other specified pregnancy related conditions, second trimester (principal); O09.92 Supervision of high risk pregnancy, unspecified, second trimester; Z3A.23 23 weeks gestation of pregnancy
CPT/HCPCS: 36415; 82950; 85025

== ENCOUNTER 2018-09-07 22:59 | Observation (INO) | payer OTHER ==
[2018-02-27 13:40] VITALS: BP 117/68
== END 2018-09-08 00:05 | disposition home or self-care (01) ==
LOC: 3 SO LND 22:59
PROVIDERS: ADMIT Obstetrics & Gynecology; ATTEND Obstetrics & Gynecology
DX: O42.92 Full-term premature rupture of membranes, unspecified as to length of time between rupture and onset of labor (principal); O12.03 Gestational edema, third trimester; Z3A.37 37 weeks gestation of pregnancy
CPT/HCPCS: G0378; G0379

== ENCOUNTER → 2019-07-09 | Outpatient (CLI) | payer OTHER ==
[2018-09-30 12:39] VITALS: BP 122/81
[~2019-07-09] MED LIST changes: -HYDR-2758 PO; +HYDR-2761 PO; +HYDR-3164 PO; -HYDR-971 PO
[2019-07-09 16:26] LABS: BASO # 0.1 x10^3/uL (0.0-0.2); BASO % 1 % (0-3); EOS # 0.3 x10^3/uL (0.0-0.7); EOS % 3 % (0-3); HEMATOCRIT 37.8 % (36.0-47.0); LYMPH # 3.5 x10^3/uL (1.0-4.8); LYMPH % 30 % (24-48); MEAN CORPUSCULAR HEMOGLOBIN 30 pg (25-35); MEAN CORPUSCULAR HGB CONC 34 g/dL (31-37); MEAN CORPUSCULAR VOLUME 88 fL (79-100); MONO # 0.6 x10^3/uL (0.0-1.1); MONO % 5 % (0-9); NEUT % 61 % (31-73); PLATELET COUNT 472 x10^3/uL (140-400); RED CELL DISTRIBUTION WIDTH 12.8 % (11.5-14.5); WHITE BLOOD COUNT 11.6 x10^3/uL (4.0-11.0)
== END | disposition home or self-care (01) ==
LOC: LAB 15:56
PROVIDERS: ATTEND Obstetrics & Gynecology
DX: Z32.01 Encounter for pregnancy test, result positive (principal); J45.909 Unspecified asthma, uncomplicated
CPT/HCPCS: 36415; 85025; 86592; 86703; 86762; 86850; 86900; 86901; 87340

== ENCOUNTER → 2019-10-20 | Outpatient (CLI) | payer OTHER ==
[2018-09-30 12:39] VITALS: BP 122/81
--- NOTE | 2019-10-20 16:48 | RAD ---
EXAM: Obstetrics sonogram. HISTORY: Size and dates assessment. TECHNIQUE: Sonographic imaging of a gravid uterus was performed. COMPARISON: None. FINDINGS: There is a single intrauterine fetus in breech presentation with a heart rate of 143 bpm. The cervix is closed and measures 3.9 cm in length. There is a three-vessel umbilical cord with normal insertion. The stomach, kidneys, bladder, spine, facial profile and extremities are unremarkable. A four-chamber heart and the right and left outflow tracts, cerebellum and cisterna magna are not well seen due to presentation. The amniotic fluid index is normal at 13.5 cm. There is an anterior placenta without evidence of placenta previa. The biparietal diameter is 4.17 cm, corresponding with 18 weeks and 4 days. The head circumference is 16.55 cm, corresponding with 19 weeks and 2 days. The abdominal circumference is 14.11 cm, corresponding with 19 weeks and 3 days. The femoral length is 2.96 cm, corresponding with 19 weeks and 1 day. The estimated gestational age based on combined ultrasound measurements is 19 weeks and 1 day and the estimated weight is 284 g. The estimated due date is 03/14/2020. IMPRESSION: 1. Single intrauterine fetus in breech presentation with a normal heart rate and gestational age based on ultrasound measurements of 19 weeks and 1 day. The gestational age based on LMP is 18 weeks and 6 days. 2. Suboptimal evaluation of the heart and outflow tracts, cerebellum and cisterna magna due to presentation. Follow-up can be performed to complete an otherwise unremarkable anatomy survey. Electronically signed by: Kelly Butcher MD (10/20/2019 4:45 PM) [place] [id number]
== END | disposition home or self-care (01) ==
LOC: US 14:49
PROVIDERS: ATTEND Obstetrics & Gynecology
DX: O32.1XX0 Maternal care for breech presentation, not applicable or unspecified (principal); Z3A.19 19 weeks gestation of pregnancy
CPT/HCPCS: 76805

== ENCOUNTER → 2019-12-12 | Outpatient (CLI) | payer OTHER ==
[2018-09-30 12:39] VITALS: BP 122/81
[2019-12-12 20:28] LABS: BASO # 0.1 x10^3/uL (0.0-0.2); BASO % 1 % (0-3); EOS # 0.4 x10^3/uL (0.0-0.7); EOS % 3 % (0-3); HEMATOCRIT 38.2 % (36.0-47.0); LYMPH % 21 % (24-48); MEAN CORPUSCULAR HEMOGLOBIN 31 pg (25-35); MEAN CORPUSCULAR HGB CONC 34 g/dL (31-37); MEAN CORPUSCULAR VOLUME 90 fL (79-100); MONO # 0.7 x10^3/uL (0.0-1.1); MONO % 5 % (0-9); NEUT % 71 % (31-73); PLATELET COUNT 399 x10^3/uL (140-400); RED BLOOD COUNT 4.25 x10^6/uL (3.50-5.40); RED CELL DISTRIBUTION WIDTH 13.4 % (11.5-14.5); WHITE BLOOD COUNT 14.2 x10^3/uL (4.0-11.0)
== END | disposition home or self-care (01) ==
LOC: LAB 04:12
PROVIDERS: ATTEND Obstetrics & Gynecology
DX: O09.92 Supervision of high risk pregnancy, unspecified, second trimester (principal); Z3A.27 27 weeks gestation of pregnancy
CPT/HCPCS: 36415; 82950; 85025

== ENCOUNTER 2020-03-16 19:49 | Inpatient (IN) | payer OTHER ==
[~2020-03-16] VITALS: Ht 160 cm; Wt 93.0 kg
[2020-03-16] MEDS ORDERED: diphenhydrAMINE HCL 25 MG CAPSULE PO PRN (20:00)
[2020-03-16] MEDS ORDERED: OXYTOCIN 30 UNIT/500 ML PREMIX 500 ML IV PRN (20:00)
[2020-03-16] MEDS ORDERED: IBUPROFEN 400 MG TABLET. PO PRN (20:00)
[2020-03-16] MEDS ORDERED: TERBUTALINE 1 MG/ML VIAL. SQ PRN (20:00)
[2020-03-16] MEDS ORDERED: LIDOCAINE 1% PF 30 ML VIAL. INJ PRN (20:00)
[2020-03-16] MEDS ORDERED: ACETAMINOPHEN 325 MG TABLET. PO PRN (20:00)
[2020-03-16] MEDS ORDERED: 0.9 % SODIUM CHLORIDE 10 ML DISP.SYRIN. IV PRN (20:00)
[2020-03-16] MEDS ORDERED: DINOPROSTONE 10 MG SUPP.VAG VG ONE (20:00)
[2020-03-16] MEDS ORDERED: fentaNYL PF VIAL 100 MCG/2 ML VIAL IVP PRN (20:00)
[2020-03-16] MEDS ORDERED: ONDANSETRON PF 4 MG/2 ML VIAL. IVP PRN (20:00)
[2020-03-16] MEDS: IV RINGERS,LACTATED 1000ML 1,000 ML IV PRN (20:16)
[2020-03-16 20:46] LABS: COLOR,URINE YELLOW
[2020-03-16 20:47] LABS: BILIRUBIN,URINE NEGATIVE (NEG); CLARITY,URINE CLEAR; NITRITE,URINE NEGATIVE (NEG); PH,URINE 6.5 (<5.0-8.0); PROTEIN,URINE NEGATIVE (NEG-TRACE); UROBILINOGEN,URINE 0.2 mg/dL (0.2 mg/dL)
[2020-03-16 20:48] LABS: BASO # 0.1 x10^3/uL (0.0-0.2); BASO % 1 % (0-3); EOS # 0.3 x10^3/uL (0.0-0.7); EOS % 2 % (0-3); HEMATOCRIT 38.6 % (36.0-47.0); HEMOGLOBIN 13.1 g/dL (12.0-15.5); LYMPH # 2.6 x10^3/uL (1.0-4.8); LYMPH % 20 % (24-48); MEAN CORPUSCULAR HEMOGLOBIN 30 pg (25-35); MEAN CORPUSCULAR HGB CONC 34 g/dL (31-37); MEAN CORPUSCULAR VOLUME 89 fL (79-100); MONO # 0.6 x10^3/uL (0.0-1.1); MONO % 5 % (0-9); NEUT # 9.3 x10^3/uL (1.8-7.7); NEUT % 73 % (31-73); PLATELET COUNT 369 x10^3/uL (140-400); RED BLOOD COUNT 4.35 x10^6/uL (3.50-5.40); RED CELL DISTRIBUTION WIDTH 13.7 % (11.5-14.5); WHITE BLOOD COUNT 12.8 x10^3/uL (4.0-11.0)
[2020-03-16 20:49] LABS: RBC,URINE 0 /HPF (0-2)
[2020-03-16 20:50] LABS: BACTERIA,URINE MODERATE /HPF (0-FEW); SQUAMOUS EPITHELIAL CELL,UR MANY /LPF
[2020-03-16 21:05] VITALS: BP 117/72
--- NOTE | 2020-03-16 21:06 | PDOC1 ---
OB - History Hx of Present Care: Good Care Ultrasounds: Normal mid trimester US Obstetrical Complications: None Medical Complications: None Past Family/Social History * Past Medical, Surgical, Family and Obstetric Histories reviewed from chart. Rubella: Immune RPR/VDRL: Negative GBS Status: Negative HBsAG: Negative OB - Chief Complaint & HPI Date of Admission: Date of Admission: March 16, 2020 at 19:49 Chief Complaint/History : 3 Para: 2 EGA: 40 Reason for admission: induction of labor (oligohydramnios) Admission Nurse Assessment Rev: Yes OB - Admission Exam Physical Exam HEENT: Normal Heart: Regular Rate Lungs: Clear Abdomen: Gravid, Non tender, Soft Extremities: Edema Reflexes: Normal Cervical Dilatation: 2cm Effacement: 75% Station: -3 Membranes: Intact Heart Rate: Normal Accelerations: Accelerations Present Decelerations: No decelerations Contractions on Admission: >10 Minutes Apart Text A: 40 wks IUP Oligohydramnios P: Admit IOL secondary oligohydramnios with cervidil, then pitocin in am. TOM ALMAZAN Jr, MD March 16, 2020 21:06
[2020-03-17] MEDS ORDERED: MAG HYDROX/ALUMINUM HYD/SIMETH 30 ML ORAL.SUSP PO PRN ×2 (03:15→13:15)
[2020-03-17] MEDS ORDERED: OXYTOCIN 30 UNIT/500 ML PREMIX 500 ML IV PRN ×2 (06:00→13:15)
[2020-03-17] MEDS: IV RINGERS,LACTATED 1000ML 1,000 ML IV PRN ×2 (07:23→09:43)
[2020-03-17] MEDS ORDERED: L&D EPIDURAL SYRINGE 50 ML ONE (09:34)
[2020-03-17] MEDS ORDERED: ROPIVacaine 0.2% PF 10 ML VIAL. ONE ×2 (09:34→10:00)
[2020-03-17] MEDS ORDERED: L&D EPIDURAL 50 ML SYRINGE. ONE (10:00)
[2020-03-17] MEDS ORDERED: IV RINGERS,LACTATED 1000ML 1,000 ML IV SCH (10:18)
[2020-03-17] MEDS ORDERED: BUPIVACAINE MPF 0.25% 30 ML VIAL. EPID PRN (10:30)
[2020-03-17] MEDS ORDERED: ROPIVacaine 0.2% PF 10 ML VIAL. EPID PRN (10:30)
[2020-03-17] MEDS ORDERED: fentaNYL PF VIAL 100 MCG/2 ML VIAL EPID PRN (10:30)
[2020-03-17] MEDS ORDERED: NALOXONE 0.4 MG/ML VIAL. IV PRN (10:30)
[2020-03-17] MEDS ORDERED: L&D EPIDURAL SYRINGE 50 ML EPID PRN (10:30)
--- NOTE | 2020-03-17 13:08 | PDOC ---
VAGINAL DELIVERY DATE DATE: 03/17/20 TIME: 13:06 : 3 Para: 3 EGA: 40 VAGINAL DELIVERY: VTX VACCUM ASSISTED: No PLACENTA: Spontaneous 8/9 SEX: Male WEIGHT Weight [ pending] Nuchal Cord: No Amniotic Fluid: Clear PAIN: Epidural EPISIOTOMY: No EXTENSION: No EBL 300 ml COMPLICATIONS none CONDITION pt. stable Signs of Intrauterine Infectio: None Shoulder Dystocia: No TOM ALMAZAN Jr, MD March 17, 2020 13:08
[2020-03-17] MEDS ORDERED: SIMETHICONE 80 MG TAB.CHEW PO PRN (13:15)
[2020-03-17] MEDS ORDERED: oxyCODONE/APAP 5/325 1 TAB TABLET PO PRN (13:15)
[2020-03-17] MEDS ORDERED: HYDROCORTISONE 1% TOPICAL OINTMENT 30GM TUBE. TP PRN (13:15)
[2020-03-17] MEDS ORDERED: ACETAMINOPHEN 325 MG TABLET. PO PRN (13:15)
[2020-03-17] MEDS ORDERED: PHENYLEPH/MINERAL OIL/PETROLAT RECTAL OINTMENT TUBE. RC PRN (13:15)
[2020-03-17] MEDS ORDERED: TDaP (Adacel) per PROTOCOL. MC PRN (13:15)
[2020-03-17] MEDS ORDERED: MAGNESIUM HYDROXIDE 2,400 MG/30 ML ORAL.SUSP. PO PRN (13:15)
[2020-03-17] MEDS ORDERED: ZOLPIDEM 5 MG TABLET. PO PRN (13:15)
[2020-03-17] MEDS ORDERED: diphenhydrAMINE HCL 25 MG CAPSULE PO PRN (13:15)
[2020-03-17] MEDS ORDERED: MMR per PROTOCOL. MC PRN (13:15)
[2020-03-17] MEDS ORDERED: 0.9 % SODIUM CHLORIDE 10 ML DISP.SYRIN. IV PRN (13:15)
[2020-03-17] MEDS ORDERED: BENZOCAINE 20% TOPICAL AEROSOL SPRAY 57GM CAN. TP PRN (13:15)
[2020-03-17] MEDS: IBUPROFEN 400 MG TABLET. PO PRN (14:35)
[2020-03-17 16:05] VITALS: BP 115/60
[2020-03-17 17:05] VITALS: BP 112/54
[2020-03-17 21:45] VITALS: BP 105/63
[2020-03-18 02:22] VITALS: BP 109/67
[2020-03-18] MEDS: IBUPROFEN 400 MG TABLET. PO PRN ×2 (02:26→09:50)
[2020-03-18 06:04] VITALS: BP 108/70
[2020-03-18 06:13] LABS: BASO # 0.1 x10^3/uL (0.0-0.2); BASO % 0 % (0-3); EOS # 0.3 x10^3/uL (0.0-0.7); EOS % 2 % (0-3); HEMATOCRIT 35.3 % (36.0-47.0); HEMOGLOBIN 11.8 g/dL (12.0-15.5); LYMPH % 19 % (24-48); MEAN CORPUSCULAR HEMOGLOBIN 30 pg (25-35); MEAN CORPUSCULAR HGB CONC 34 g/dL (31-37); MEAN CORPUSCULAR VOLUME 90 fL (79-100); MONO # 0.8 x10^3/uL (0.0-1.1); MONO % 5 % (0-9); NEUT # 11.1 x10^3/uL (1.8-7.7); NEUT % 73 % (31-73); PLATELET COUNT 322 x10^3/uL (140-400); RED BLOOD COUNT 3.91 x10^6/uL (3.50-5.40); RED CELL DISTRIBUTION WIDTH 14.4 % (11.5-14.5); WHITE BLOOD COUNT 15.3 x10^3/uL (4.0-11.0)
[2020-03-18] MEDS: FERROUS SULFATE 325 MG TABLET. PO SCH (08:00)
--- NOTE | 2020-03-18 08:38 | PDOC3 ---
OB DISCHARGE SUMMARY DATE OF ADMISSION: 03/16/20 DATE OF DISCHARGE: 03/18/20 REASON FOR ADMISSION: Induction of labor (Oligohydramnios) INTRAPARTUM PROCEDURES: Spontanous Vag Deliv DISCHARGE DIAGNOSIS: Term Delivered DISCHARGE INFORMATION: Activity (ad daniele), Diet (regular), Instructions (pelvic rest x 6 wks) HOSPITAL COURSE Term gestation delivered vaginally without difficulty. TOM ALMAZAN Jr, MD March 18, 2020 08:38
[2020-03-18] MEDS ORDERED: IBUP-1060 PO (08:40)
--- NOTE | 2020-03-18 08:40 | DISCH ---
DISCHARGE INSTRUCTIONS Condition on Discharge Condition on Discharge: Stable Activity After Discharge Activity Instructions for Disc: Activity as tolerated Lifting Instructions after Dis: No heavy lifting, No pulling or pushing, Do not lift >10 pounds Driving Instructions after Dis: Do not drive today Weight Bearing Status after Di: As tolerated Diet after Discharge Diet after Discharge: Regular Diet Texture: Regular Contacting the [facility] after DC Call your doctor for: Concerns you may have Follow-Up Follow up with: Dr. Russ in 6 wks Treatment/Equipment after DC Adaptive Equipment Issued: None TOM RUSS Jr, MD March 18, 2020 08:40
[2020-03-18] MEDS: DOCUSATE SODIUM 100 MG CAPSULE. PO PRN ×2 (09:51→19:16)
[2020-03-18] MEDS: MULTIVITAMIN with MINERAL TABLET. PO SCH (09:51)
[2020-03-18 12:24] VITALS: BP 114/71
[2020-03-18 19:15] VITALS: BP 121/66
[2020-03-19] MEDS: IBUPROFEN 400 MG TABLET. PO PRN ×3 (01:11→16:57)
[2020-03-19 04:50] VITALS: BP 113/79
[2020-03-19] MEDS: FERROUS SULFATE 325 MG TABLET. PO SCH ×2 (08:00→17:00)
[2020-03-19] MEDS: DOCUSATE SODIUM 100 MG CAPSULE. PO PRN (08:42)
[2020-03-19] MEDS: MULTIVITAMIN with MINERAL TABLET. PO SCH (08:42)
[2020-03-19 13:00] VITALS: BP 110/68
[2020-03-19 18:38] VITALS: BP 118/80
== END 2020-03-19 19:05 | disposition home or self-care (01) | DRG 807 ==
LOC: 3 SO LND 19:49
PROVIDERS: ADMIT Obstetrics & Gynecology; ATTEND Obstetrics & Gynecology
PROC: 10E0XZZ Delivery of Products of Conception, External Approach (ICD-10-PCS; principal; 2020-03-17)
PROC: 3E0R3BZ Introduction of Anesthetic Agent into Spinal Canal, Percutaneous Approach (ICD-10-PCS; 2020-03-17)
PROC: 00HU33Z Insertion of Infusion Device into Spinal Canal, Percutaneous Approach (ICD-10-PCS; 2020-03-17)
DX: O41.03X0 Oligohydramnios, third trimester, not applicable or unspecified (principal); Z37.0 Single live birth; Z3A.40 40 weeks gestation of pregnancy; Z20.828 Contact with and (suspected) exposure to other viral communicable diseases
CPT/HCPCS: 36415; 81001; 85025; 86592; 86850; 86900; 86901; 87086; 87635; J2405; J2590; J2795; J3010; J7120; G0378

== ENCOUNTER → 2020-06-07 | Outpatient (CLI) | payer OTHER | END | disposition home or self-care (01) | LOC: LAB 10:18 | PROVIDERS: ATTEND Internal Medicine Pulmonary Disease | DX: R05 Cough (principal); R06.02 Shortness of breath; Z20.828 Contact with and (suspected) exposure to other viral communicable diseases | CPT/HCPCS: U0003-CS ==